=== PATIENT | female | born 1980 | race Caucasian/White ===

== ENCOUNTER 2018-12-01 19:18 | Emergency (ER) | payer OTHER ==
[~2018-12-01] VITALS: Ht 162.6 cm; Wt 66.0 kg
[~2018-12-01 19:18] MED LIST: LORA0.5T PO
[2018-12-01 19:19] VITALS: BP 147/77; PULSE 125; RESP 19; Ht 162.6 cm; Wt 66.0 kg
[2018-12-01] MEDS ORDERED: BENZONATATE 100 MG CAP PO ONE (20:00)
[2018-12-01] MEDS ORDERED: IBUPROFEN 800 MG TAB PO ONE (20:00)
[2018-12-01] MEDS ORDERED: AZIT250T PO (21:19)
[2018-12-01] MEDS ORDERED: AZITHROMYCIN 250 MG TAB PO ONE (21:30)
--- NOTE | 2018-12-01 22:54 | ERD ---
ER Documentation Chief Complaint Chief Complaint C/O FEVER AND COUGH X4 DAYS, CHEST WALL PAIN W/ COUGH HPI Patient is a 38-year-old female with no medical problems who presents with a fever. The patient has had fever and cough for the past 4 days. The patient tried Sudafed and Robitussin. She tried Tylenol yesterday. She had no antibiotics as of yet. She does have positive phlegm. She did not get a flu shot this year. Upon review of old medical records this is the patient's second visit to the ER since 2016. She does not know the name of her primary doctor. ROS All systems reviewed and are negative except as per history of present illness. Medications Home Meds Active Scripts Azithromycin* (Zithromax*) 250 Mg Tablet, 250 MG PO DAILY for 4 Days, TAB Prov:KARLA LADD MD 12/01/18 Reported Medications Lorazepam* (Lorazepam*) 0.5 Mg Tablet, PO Q8 PRN for ANXIETY, TAB 12/18/15 Allergies Allergies: Coded Allergies: No Known Allergy (Unverified , 12/01/18) PMhx/Soc Medical and Surgical Hx: pt denies Medical Hx, pt denies Surgical Hx Hx Alcohol Use: No Hx Substance Use: No Hx Tobacco Use: No Smoking Status: Never smoker FmHx Family History: No diabetes Physical Exam Vitals Vital Signs Date Temp Pulse Resp B/P (MAP) Pulse Ox O2 O2 Flow FiO2 Time Delivery Rate 12/01/18 100.2 125 19 147/77 99 19:19 (100) Physical Exam Const: No acute distress Head: Atraumatic Eyes: Normal Conjunctiva ENT: Normal External Ears, Nose and Mouth. Neck: Full range of motion. No meningismus. Resp: Cough Cardio: Regular rate and rhythm, no murmurs Abd: Soft, non tender, non distended. Normal bowel sounds Skin: No petechiae or rashes Back: No midline or flank tenderness Ext: No cyanosis, or edema Neur: Awake and alert Psych: Normal Mood and Affect Results 24 hrs Laboratory Tests Test 12/01/18 20:09 12/01/18 20:11 Bedside Urine pH (LAB) 8.5 Bedside Urine Protein (LAB) 1+ Bedside Urine Glucose (UA) Negative Bedside Urine Ketones (LAB) Trace Bedside Urine Blood 2+ Bedside Urine Nitrite (LAB) Negative Bedside Urine Leukocyte Esterase (L Negative POC Beta HCG, Qualitative NEGATIVE Current Medications Medications Dose Sig/Norm Start Time Status Last (Trade) Ordered Route PRN Stop Time Admin Dose Reason Admin Ibuprofen 800 mg ONCE ONCE 12/01/18 DC 12/01/18 (Motrin) PO 20:00 19:46 12/01/18 20:01 Benzonatate 200 mg ONCE ONCE 12/01/18 DC 12/01/18 (Tessalon) PO 20:00 20:09 12/01/18 20:01 500 mg ONCE ONCE 12/01/18 DC 12/01/18 Azithromycin PO 21:30 21:29 (Zithromax) 12/01/18 21:31 Procedures/MDM Chest x-ray shows pneumonia per radiology. Smoking Cessation Therapy: Pt. was lectured for greater than 3 minutes on the health risks of continued smoking and the benefits of cessation. Patient is a 38-year-old female who presents with cough. The patient had an x- ray which showed pneumonia. The patient is otherwise well-appearing and I believe outpatient management is appropriate. The patient will be given 5 days of Zithromax and the first dose was given in the emergency department. The patient can follow-up with her primary doctor within 24-48 hours. The patient can return for any worsening symptoms. Departure Diagnosis: Primary Impression: Pneumonia Pneumonia type: due to unspecified organism Laterality: unspecified laterality Lung location: unspecified part of lung Qualified Codes: J18.9 - Pneumonia, unspecified organism Condition: Fair Patient Instructions: Pneumonia (Adult) Additional Instructions: Call your primary care doctor TOMORROW for an appointment during the next 1 WEEK.Tell the legal secretary receptionist that you were referred from this facility.See the doctor sooner or return here if your condition worsens before your appointment time. KARLA LADD MD Dec 01, 2018 22:54
== END 2018-12-01 22:41 | disposition home or self-care (01) ==
LOC: E/R 19:18
DX: J18.9 Pneumonia, unspecified organism (principal)
CPT/HCPCS: 71045; 81003; 81025; 87400; 93005; Z7610